=== PATIENT | female | born 1990 | race American Indian/Alaskan Native ===

== ENCOUNTER 2018-10-01 09:06 | Emergency (ER) | payer OTHER ==
[2018-10-01 09:30] VITALS: BP 130/85; PULSE 79; RESP 16; TEMP 98.6; O2SAT 99
--- NOTE | 2018-10-01 10:03 | C.PDOC ---
History Of Present Illness 28 year old female presents to the emergency department complaining of a sore throat and swollen glands for the past 2 days. Denies any fever, chills, nausea, vomiting, cough, or other complaints. Time Seen by Provider: 10/01/18 09:34 Chief Complaint (Nursing): ENT Problem History Per: Patient History/Exam Limitations: None Onset/Duration Of Symptoms: Days Current Symptoms Are (Timing): Still Present Past Medical History Reviewed: Historical Data, Nursing Documentation, Vital Signs Vital Signs: Last Vital Signs Temp 98.6 F 10/01/18 09:28 Pulse 79 10/01/18 09:28 Resp 16 10/01/18 09:28 BP 130/85 10/01/18 09:28 Pulse Ox 99 10/01/18 09:28 Primary Care Provider: FAMILY PROVIDER,NO Family History: States: No Known Family Hx - Social History Hx Alcohol Use: Yes Hx Substance Use: No - Immunization History Hx Tetanus Toxoid Vaccination: No Hx Influenza Vaccination: No Hx Pneumococcal Vaccination: No Review Of Systems Constitutional: Negative for: Fever, Chills ENT: Positive for: Throat Pain (sore throat) Respiratory: Negative for: Cough, Shortness of Breath Gastrointestinal: Negative for: Nausea, Vomiting Physical Exam - Physical Exam Appears: Well, Non-toxic, No Acute Distress Skin: Warm, Dry Head: Atraumatic, Normacephalic Eye(s): bilateral: Normal Inspection, EOMI Ear(s): Bilateral: Normal Nose: Normal, No Flaring, No Discharge Oral Mucosa: Moist Tongue: Normal Appearing, No Swelling Lips: Normal Appearing, No Swelling Throat: Erythema (pharygneal erythema) Neck: Normal ROM, Supple Lymphatic: Adenopathy (tenderness to right submandibular lymph node) Chest: Symmetrical Cardiovascular: Rhythm Regular, No Murmur Respiratory: Normal Breath Sounds, No Rales, No Rhonchi, No Wheezing Extremity: Bilateral: Atraumatic, Normal ROM Neurological/Psych: Oriented x3, Normal Speech ED Course And Treatment O2 Sat by Pulse Oximetry: 99 (RA) Pulse Ox Interpretation: Normal Medical Decision Making Medical Decision Making: Patient with tender lymph nodes and pharyngeal erythema, will treat with Amoxicillin. Patient is speaking clear sentences, has symmetric oropharynx, no signs of abscess. recommend analgesics and to follow up with PMD Disposition Counseled Patient/Family Regarding: Diagnosis, Need For Followup, Rx Given - Disposition Disposition: HOME/ ROUTINE Disposition Time: 10:00 Condition: GOOD Additional Instructions: Take Tylenol or Advil for pain Take Amoxicillin twice daily for one week follow up with your doctor Prescriptions: Amoxicillin [Amoxil 500 mg Cap] 500 mg PO Q12 #14 cap Instructions: Sore Throat, Adult (DC), Lymphadenitis Forms: [employer] ([place]uan) - POA Present On Arrival: None - Clinical Impression Clinical Impression: Pharyngitis, Lymphadenitis - PA / NEON SIGN SERVICER / Resident Statement MD/DO has reviewed & agrees with the documentation as recorded. - Scribe Statement The provider has reviewed the documentation as recorded by the Scribsaida Jauregui All medical record entries made by the Varun were at my direction and personally dictated by me. I have reviewed the chart and agree that the record accurately reflects my personal performance of the history, physical exam, medical decision making, and the department course for this patient. I have also personally directed, reviewed, and agree with the discharge instructions and disposition.
== END 2018-10-01 10:05 | disposition home or self-care (01) ==
LOC: C.ER 09:06
DX: J02.9 Acute pharyngitis, unspecified (principal); I88.9 Nonspecific lymphadenitis, unspecified